=== PATIENT | male | born 1935 | race Caucasian/White ===

== ENCOUNTER 2021-01-13 19:42 | Observation (INO) | payer MEDICARE, SELFPAY ==
--- NOTE | 2021-01-13 19:50 | ECG_ITS ---
[facility] Test Date: 2021-01-13 Pat Name: Evi Banuelos Department: Room: Gender: Male Development Officer: : 1935 Requested By: Elvia Troy Order Number: [id number] Jaskaran MD: Salina Pina M.D. Measurements Intervals Cyclone Rate: 103 P: 57 RI: 210 QRS: -25 QRSD: 94 T: 55 QT: 332 QTc: 436 Interpretive Statements SINUS TACHYCARDIA WITH FIRST DEGREE AV BLOCK WITH OCCASIONAL VENTRICULAR PREMATURE COMPLEXES BORDERLINE LEFT AXIS DEVIATION [QRS AXIS < -20] Compared to ECG 05/18/2019 20:31:00 Ventricular premature complex(es) now present Sinus rhythm no longer present T-wave abnormality no longer present Electronically Signed On 01-13-2021 21:00:32 CDT by Salina Pina M.D. [id number]
--- NOTE | 2021-01-13 19:50 | CTR_ITS ---
PROCEDURE INFORMATION: Exam: CT Head Without Contrast Exam date and time: 01/13/2021 8:01 PM Age: 85 years old Clinical indication: Syncope and collapse; Additional info: Syncope, fall, TECHNIQUE: Imaging protocol: Computed tomography of the head without contrast. Radiation optimization: All CT scans at this facility use at least one of these dose optimization techniques: automated exposure control; mA and/or kV adjustment per patient size (includes targeted exams where dose is matched to clinical indication); or iterative reconstruction. COMPARISON: CT head wo con* [id number] 05/18/2019 9:14 PM RADIATION DOSE METRICS: Total DLP (mGy-cm): 981.79 FINDINGS: Brain: There is moderate cortical atrophy. Low-density changes in the white matter are consistent with nonspecific small vessel chronic ischemic change. There is no intracranial mass, hemorrhage or edema. Cerebral ventricles: No ventriculomegaly. Bones/joints: Unremarkable. No acute fracture. Paranasal sinuses: There is complete opacification of the right maxillary sinus with high density material. Findings could represent some chronic fungal sinus disease. Mastoid air cells: Visualized mastoid air cells are well aerated. Soft tissues: Unremarkable. CT/CT head wo con* [id number] IMPRESSION: No acute intracranial finding. No significant change from 05/18/2019. Radiation Dose CTDIVOL = (mGy): DLP = 981.79 (mGy-cm)
--- NOTE | 2021-01-13 19:50 | XR_ITS ---
WS: [id number] Portable AP upright chest, 01/13/2021 Clinical Data: cp Comparison: Portable chest, 05/18/2019 Findings: No nodules, masses or effusions are seen. The heart is normal. The pulmonary vascularity is not increased. No pneumonia or pneumothorax is seen. The aortic arch and descending aorta are tortuo us. There is atelectasis and/or scarring over the lateral aspect of the left diaphragm. Monitor leads are on the chest wall. XR/XR chest 1V portable [id number] Impression: Atherosclerosis.
[2021-01-13 19:54] VITALS: BP 150/90; PULSE 98; RESP 16; TEMP 37.1; O2SAT 91; BMI 33.8
--- NOTE | 2021-01-13 19:56 | W.ED.SYNCOPE ---
HPI - Syncope General: Chief Complaint: Syncope Stated Complaint: syncope Time Seen by Provider: 01/13/21 19:44 Source: patient and EMS Mode of arrival: EMS Limitations: no limitations History of Present Illness: HPI narrative: 85-year-old male who states he was getting up from the bathroom and walking out and had a syncopal event. EMS states when they arrived he was still out of it. Patient had lost consciousness for roughly 20 to 30 minutes. He states he has had this happen once before and he thought it may have been his blood pressure medicines. His blood pressure here is been normal edema states initial blood pressure was normal as well. He states he does not remember anything after it. He states he did have some confusion when he first woke up but now he is awake and alert able answer all my questions appropriately. He denies any chest pain or headache. Associated symptoms: Deny abdominal pain, fever(s), headache(s) or nausea Review of Systems Const: Denies: fever(s), chills, body aches or change in appetite Eyes: Denies: blurry vision or eye discomfort ENMT: Denies: throat pain or dental pain Card: Reports: syncope Resp: Denies: dyspnea GI: Denies: abdominal pain, nausea, vomiting or diarrhea : Denies: dysuria Musc: Denies: neck pain or back pain Skin/Breast: Denies: rash Neuro: Denies: headache(s) Psych: Denies: depression Manoj/Lymph: Denies: easy bruising All/Imm: Denies: urticaria PFSH ED PFSH: Medical History (Updated 01/13/21 @ 22:27 by Jory Stearns MD) Abnormal colonoscopy Polyps, diverticulosis Atrial fibrillation Not a kind of chronic anticoagulation BPH (benign prostatic hyperplasia) GERD (gastroesophageal reflux disease) HTN (hypertension) Hyperlipidemia PVC (premature ventricular contraction) Seizures Type 2 diabetes mellitus Surgical History (Updated 01/13/21 @ 22:27 by Jory Stearns MD) History of esophagogastroduodenoscopy Gastritis, gastric polyp 2015 Social History Smoking and tobacco status: former smoker Alcohol intake: never Physical Exam Const: COMMON NORMALS: no acute distress, patient oriented x3 and healthy appearing HENMT: COMMON NORMALS: normocephalic and atraumatic HEAD & SCALP: normocephalic and atraumatic Eye: COMMON NORMALS: Equal, round and reactive pupils present and EOMs intact bilaterally PUPIL: Yes Equal, round and reactive pupils present Neck/C-Spine: COMMON NORMALS: full ROM and supple Chest: COMMONS NORMALS: normal inspection of the chest and normal palpation of entire chest wall Resp: COMMON NORMALS: normal respiratory effort, No retractions, No use of accessory muscles and clear to auscultation bilaterally AUSCULTATION: clear to auscultation bilaterally Cardio: COMMON NORMALS: regular rate, regular rhythm and No murmurs present (Cardio) RATE: regular rate RHYTHM: regular rhythm GI: COMMON NORMALS: Normal to inspection, nondistended, normoactive bowel sounds present, Soft to palpation, non-tender and no masses PALPATION: Yes Soft to palpation Extremity: COMMON NORMALS: normal to inspection and full ROM Neuro: COMMON NORMALS: patient oriented x3, moves all extremities and no focal motor deficits Psych: COMMON NORMALS: mental status grossly normal, Normal thought process present and cooperative THOUGHT PROCESS: Normal thought process present Skin: COMMON NORMALS: no rashes or lesions noted and no wounds GENERAL SKIN EXAM: no rashes or lesions noted Course Vital Signs: Vital signs: Vital Signs Temperature 98.7 F 01/13/21 19:54 Pulse Rate 111 H 01/13/21 22:35 Respiratory Rate 16 01/13/21 22:35 Blood Pressure 136/88 01/13/21 22:35 Pulse Oximetry 93 01/13/21 22:35 MDM - Syncope MDM Narrative: Medical decision making narrative: Patient presents here with a syncopal event. Patient has been well-appearing here and has had no headache or chest pain. Initial troponin and EKG are normal. Patient's CT head here is normal as well. I spoke to physician and will admit due to the prolonged event of the syncope. Lab Data: Labs: Lab Results 01/13/21 01/13/21 01/13/21 Range/Units 20:12 20:12 20:12 WBC 8.8 (4.0-10.0) 10^3/ uL RBC 5.39 H (4.1-5.3) 10^6/u L Hgb 16.1 (11.7-16.6) g/dL Hct 48.4 (42.0-52.0) % MCV 89.8 (80-94) fL MCH 29.9 (28.0-34.0) pg MCHC 33.3 (30.0-36.0) g/dL RDW 13.0 (12.1-15.1) % Plt Count 204 (130-400) 10^3/c mm MPV 11.1 H (7.4-10.4) fL Neut % (Auto) 57.9 % Lymph % (Auto) 34.1 % [place] % (Auto) 6.1 % Eos % (Auto) 1.4 % Baso % (Auto) 0.3 % Neut # (Auto) 5.11 (1.8-7.7) 10^3/u L Lymph # (Auto) 3.0 (0.8-4.8) 10^3/u L [place] # (Auto) 0.5 (0.2-0.9) 10^3/u L Eos # (Auto) 0.1 (0.0-0.8) 10^3/u L Baso # (Auto) 0.0 (0.0-0.1) 10^3/u L Nucleated RBC % (a uto) 0 % Nucleated RBCs # 0.0 /100WBC PT 14.10 (12.1-14.9) SECO NDS INR 1.05 (0.8-1.2) Sodium 135 L (136-145) mmol/L Potassium 3.7 (3.5-5.1) mmol/L Chloride 96 L (98-107) mmol/L Carbon Dioxide 22 (22-29) mmol/L Anion Gap 20.7 H (5-19) BUN 16 (8-23) mg/dL Creatinine 0.9 (0.7-1.2) mg/dL GFR Calculation Not Reportable Glucose 123 H (65-115) mg/dL Calculated Osmolal ity 283 L (285-295) mOsm/k g Calcium 10.3 (8.5-10.5) mg/dL Total Bilirubin 0.5 (0.15-1.2) mg/dL AST 46 H (0-40) U/L ALT 26 (0-41) U/L Alkaline Phosphata se 93 (40-130) IU/L Troponin T Baselin e (0-15) ng/L Total Protein 7.2 (6.6-8.7) g/dL Albumin 4.8 (3.5-5.2) g/dL Globulin 2.4 (1.3-4.6) g/dL 01/13/21 Range/Units 20:12 WBC (4.0-10.0) 10^3/ uL RBC (4.1-5.3) 10^6/u L Hgb (11.7-16.6) g/dL Hct (42.0-52.0) % MCV (80-94) fL MCH (28.0-34.0) pg MCHC (30.0-36.0) g/dL RDW (12.1-15.1) % Plt Count (130-400) 10^3/c mm MPV (7.4-10.4) fL Neut % (Auto) % Lymph % (Auto) % [place] % (Auto) % Eos % (Auto) % Baso % (Auto) % Neut # (Auto) (1.8-7.7) 10^3/u L Lymph # (Auto) (0.8-4.8) 10^3/u L [place] # (Auto) (0.2-0.9) 10^3/u L Eos # (Auto) (0.0-0.8) 10^3/u L Baso # (Auto) (0.0-0.1) 10^3/u L Nucleated RBC % (a uto) % Nucleated RBCs # /100WBC PT (12.1-14.9) SECO NDS INR (0.8-1.2) Sodium (136-145) mmol/L Potassium (3.5-5.1) mmol/L Chloride (98-107) mmol/L Carbon Dioxide (22-29) mmol/L Anion Gap (5-19) BUN (8-23) mg/dL Creatinine (0.7-1.2) mg/dL GFR Calculation Glucose (65-115) mg/dL Calculated Osmolal ity (285-295) mOsm/k g Calcium (8.5-10.5) mg/dL Total Bilirubin (0.15-1.2) mg/dL AST (0-40) U/L ALT (0-41) U/L Alkaline Phosphata se (40-130) IU/L Troponin T Baselin e 24 H (0-15) ng/L Total Protein (6.6-8.7) g/dL Albumin (3.5-5.2) g/dL Globulin (1.3-4.6) g/dL Imaging Data^: CT Head: Radiologist's impression: [address] [place] [address] CT Scan Report Signed Patient: Evi Banuelos Unit #: [id number] : 1935 Age/Sex: 85 / M ADM Date: 01/13/21 Loc: ER Room/Bed: Attending Dr: Ordering Provider/Ordering MD: Elvia Troy MD Date of Service: 01/13/21 Procedure(s): CT head wo con* [id number] Accession Number(s): [id number] Report Number: [id number] PROCEDURE INFORMATION: Exam: CT Head Without Contrast Exam date and time: 01/13/2021 8:01 PM Age: 85 years old Clinical indication: Syncope and collapse; Additional info: Syncope, fall, TECHNIQUE: Imaging protocol: Computed tomography of the head without contrast. Radiation optimization: All CT scans at this facility use at least one of these dose optimization techniques: automated exposure control; mA and/or kV adjustment per patient size (includes targeted exams where dose is matched to clinical indication); or iterative reconstruction. COMPARISON: CT head wo con* [id number] 05/18/2019 9:14 PM RADIATION DOSE METRICS: Total DLP (mGy-cm): 981.79 FINDINGS: Brain: There is moderate cortical atrophy. Low-density changes in the white matter are consistent with nonspecific small vessel chronic ischemic change. There is no intracranial mass, hemorrhage or edema. Cerebral ventricles: No ventriculomegaly. Bones/joints: Unremarkable. No acute fracture. Paranasal sinuses: There is complete opacification of the right maxillary sinus with high density material. Findings could represent some chronic fungal sinus disease. Mastoid air cells: Visualized mastoid air cells are well aerated. Soft tissues: Unremarkable. CT/CT head wo con* [id number] IMPRESSION: No acute intracranial finding. No significant change from 05/18/2019. Radiation Dose CTDIVOL = (mGy): DLP = 981.79 (mGy-cm) EKG Data^: EKG 1: Attestation: I personally reviewed and interpreted this EKG as follows: EKG interpretation date: 01/13/21 EKG interpretation time: 22:14 Interpretation: nsr hr [address] or t wave abnormalities qrs 98 qtc 384 Discharge Plan Discharge Admit Provider: Jory Stearns Coding Level of Care Code ED Equipment Validation Engineer for Chg Fwd Exam Comprehensive
[2021-01-13 20:11] VITALS: BP 164/91; PULSE 104; RESP 16; O2SAT 91
--- NOTE | 2021-01-13 20:12 | XR_ITS ---
WS: [id number] LEFT ELBOW: 3 VIEW(S) TECHNIQUE: AP, oblique and lateral. HISTORY: injury COMPARISON: None available. Small avulsion at the olecranon is age indeterminate. No joint effusion. No joint effusion. There is a large soft tissue hematoma centered over the olecranon extending over a length of 10 cm x 2.3 cm. XR/XR elbow LT min 3V* [id number] IMPRESSION: 1. Age-indeterminate tiny avulsion from the olecranon. 2. Large soft tissue hematoma centered over the elbow.
[2021-01-13 20:19] VITALS: RESP 16; O2SAT 91
[2021-01-13] MEDS: ondansetron 2 mg/ML SDV 2 mL 4 MG IVP (20:19)
[2021-01-13] MEDS: morphine 4 mg/mL SDV 1 mL IVP (20:19)
--- NOTE | 2021-01-13 20:21 | PC.NURSE ---
patient to ct
[2021-01-13 20:24] LABS: Basophils % 0.3 %; Eosinophils # 0.1 10^3/uL (0.0-0.8); Eosinophils % 1.4 %; Hematocrit 48.4 % (42.0-52.0); Hemoglobin 16.1 g/dL (11.7-16.6); Lymphocytes % 34.1 %; Mean Corpuscular HGB Conc 33.3 g/dL (30.0-36.0); Mean Corpuscular Hemoglobin 29.9 pg (28.0-34.0); Mean Corpuscular Volume 89.8 fL (80-94); Mean Platelet Volume 11.1 fL (7.4-10.4); Monocytes # 0.5 10^3/uL (0.2-0.9); Monocytes % 6.1 %; Neutrophils # 5.11 10^3/uL (1.8-7.7); Neutrophils % 57.9 %; Nucleated Red Blood Cells % 0 %; Platelet Count 204 10^3/cmm (130-400); Red Blood Count 5.39 10^6/uL (4.1-5.3); White Blood Count 8.8 10^3/uL (4.0-10.0)
[2021-01-13 20:47] LABS: Troponin(5th) Baseline 24 ng/L (0-15)
[2021-01-13 20:48] LABS: Alanine Aminotransferase 26 U/L (0-41); Albumin Level 4.8 g/dL (3.5-5.2); Alkaline Phosphatase 93 IU/L (40-130); Anion Gap 20.7 (5-19); Aspartate Amino Transferase 46 U/L (0-40); Blood Urea Nitrogen 16 mg/dL (8-23); Calcium 10.3 mg/dL (8.5-10.5); Carbon Dioxide 22 mmol/L (22-29); Chloride 96 mmol/L (98-107); Globulin 2.4 g/dL (1.3-4.6); Glucose 123 mg/dL (65-115); Osmolality Calculated 283 mOsm/kg (285-295); Potassium 3.7 mmol/L (3.5-5.1); Sodium 135 mmol/L (136-145); Total Bilirubin 0.5 mg/dL (0.15-1.2); Total Protein 7.2 g/dL (6.6-8.7)
[2021-01-13 21:50] LABS: INR 1.05 (0.8-1.2)
--- NOTE | 2021-01-13 21:50 | ECG_ITS ---
[facility] Test Date: 2021-01-13 Pat Name: Evi Banuelos Department: Room: Gender: Male Travel Pt: : 1935 Requested By: Elvia Troy Order Number: [id number] Jaskaran MD: Salina Pina M.D. Measurements Intervals [place] Rate: 98 P: 24 HI: 200 QRS: -35 QRSD: 98 T: 43 QT: 328 QTc: 420 Interpretive Statements SINUS RHYTHM LEFT AXIS DEVIATION [QRS AXIS < -30] Compared to ECG 01/13/2021 20:01:06 Sinus tachycardia no longer present First degree AV block no longer present Electronically Signed On 01-13-2021 22:33:52 CDT by Salina Pina M.D. [id number]
--- NOTE | 2021-01-13 22:24 | PM.HP ---
Providers/Chief Complaint Primary Care Provider: Judi Pak APN Chief Complaint: syncope History of Present Illness Evi Banuelos is a 85 year old male who presented today after an episode of fall in his bathroom. Patient is stating that he is very active for his age, he has had 2 episode of seizure in the past, his seizure episode mostly would present as confusion he never sustained any myoclonic activity or syncopal events. Today around evening he felt something funny which he is describing as I could not think right , he sat in his chair and then decided to go to the bathroom. When checked on him after 20 minutes he was found on the ground hence EMS was called. Patient is stating that he has no memory of going to the bathroom at all he was very confused after he woke up and was a bit aggressive with the EMS staff. He is denying chest pain, palpitations, recent fever, headache, vision changes, shortness of breath. He does not take any antiepileptics. He is endorsing tongue bite and injury to his left elbow Diagnostics in the ER revealed normal CBC, BMP, mild hypokalemia, EKG unremarkable, CT head unremarkable, based on his clinical presentation tongue bite most likely had a seizure I am giving him 1 g of Keppra, elbow x-ray official read is pending, also requested prolactin level along D-dimer at the time of my evaluation he was awake alert very pleasant and cooperative Review of Systems Const: Denies: fever(s) or chills Eyes: Denies: change in vision ENMT: Denies: throat pain Card: Denies: chest pain Resp: Denies: dyspnea GI: Denies: abdominal pain : Denies: flank pain Musc: Denies: neck pain Skin/Breast: Reports: skin tenderness, skin swelling, new lesions and striae Neuro: Reports: seizure-like activity; Denies: weakness in extremities Psych: Denies: anxiety Endo: Denies: polyuria Manoj/Lymph: Denies: easy bruising All/Imm: Denies: urticaria Medications/Allergies Home Medications Medication Instructions Recorded Confirmed Last Taken Type hydrochlorothiazide 12.5 mg tablet 12.5 mg PO QAM 11/25/19 01/13/21 01/13/21 11:38 History loratadine 10 mg capsule 10 mg PO QAM 11/25/19 01/13/21 01/13/21 History lovastatin 20 mg tablet 20 mg PO DAILY@18 11/25/19 01/13/21 01/12/21 History potassium gluconate 595 mg (99 mg) 595 mg PO QAM 11/25/19 01/13/21 01/13/21 History tablet tamsulosin 0.4 mg capsule 0.4 mg PO DAILY@18 11/25/19 01/13/21 01/12/21 History omeprazole 20 mg capsule,delayed 20 mg PO DAILY PRN 11/16/20 01/13/21 Unknown History release telmisartan 80 mg tablet 80 mg PO BID@05,18 tab 11/16/20 01/13/21 01/13/21 11:38 History A-C-E-zinc ox-selen AA-copper 1 tab PO QAM 01/13/21 01/13/21 01/13/21 History [Vision Formula(R-B-K-Zn-Se-Cu)] Vitamin C 1 tab PO QAM 01/13/21 01/13/21 01/13/21 History acetaminophen [Tylenol Extra 1,000 mg PO PRN 01/13/21 01/13/21 Unknown History Strength] calcium carbonate [Calcium 500] 500 mg PO DAILY 01/13/21 01/13/21 01/13/21 History cholecalciferol (vitamin D3) 25 mcg PO DAILY 01/13/21 01/13/21 01/13/21 History [Vitamin D3] diltiazem HCl 180 mg PO QAM 01/13/21 01/13/21 01/13/21 11:38 History fluticasone propionate [Flonase] 2 spray INTRANASAL DAILY 01/13/21 01/13/21 01/13/21 History magnesium 250 mg PO QAM 01/13/21 01/13/21 01/13/21 History Allergies Allergy/AdvReac Type Severity Reaction Status Date / Time erythromycin base Allergy Unknown Verified 01/13/21 21:40 Beta-Adrenergic Agents AdvReac ADR-Depress Verified 01/13/21 21:40 ion Sulfa (Sulfonamide AdvReac ADR-Itching Verified 01/13/21 21:40 Antibiotics) PFSH Acute PFSH: Medical History Abnormal colonoscopy Polyps, diverticulosis Atrial fibrillation Not a kind of chronic anticoagulation BPH (benign prostatic hyperplasia) GERD (gastroesophageal reflux disease) HTN (hypertension) Hyperlipidemia PVC (premature ventricular contraction) Seizures Type 2 diabetes mellitus Surgical History (Updated 01/14/21 @ 00:16 by Jory Stearns MD) H/O wrist surgery History of appendectomy History of esophagogastroduodenoscopy Gastritis, gastric polyp 2016 History of repair of hiatal hernia History of thyroglossal duct cyst removal S/P cholecystectomy Family History Denies family history of Diabetes Dementia Hyperlipidemia Chronic kidney disease (CKD) Family history of premature coronary artery disease Cancer Stroke Social History Smoking and tobacco status: former smoker Alcohol intake: never Substance/Drug Use: never Household members: spouse Housing: House Vitals/I&O/Wt Last Vital Signs Temp 98.7 F 01/13/21 19:54 Pulse 104 H 01/13/21 20:11 Resp 16 01/13/21 20:19 BP 164/91 01/13/21 20:11 Pulse Ox 91 01/13/21 20:19 Weight last 48 hrs Weight 97.976 kg Physical Exam Narrative: EXAM NARRATIVE: Very pleasant male was sitting on table in his bed, he was on 2 L nasal cannula saturating well No active chest pain or shortness of breath He was awake alert oriented x3 GCS 15 Well-groomed S1, S2 no murmur appreciated no signs of heart failure Lower extremity no edema gangrene or ulcer Abdomen soft, central obesity, hiatal hernia, nontender no signs of peritonitis EOMI, PERRLA No neurological deficits Left elbow swelling without vascular compromise Tongue petechiae and purpura without active bleeding Appropriate mood and affect with good insight Data : 01/13/21 20:12 01/13/21 20:12 A&P Assessment and plan (1) Syncope: Status: Acute (2) Breakthrough seizure: Status: Acute Additional A&P Information Syncopal event Tongue bite, confusion after syncopal event consistent with seizure-like activity will request prolactin level patient is endorsing to previous episode of seizures, he does not take any antiepileptics, potassium 3.7 we will check magnesium, calcium is normal CT head unremarkable he is afebrile blood glucose is normal, Would load him with Keppra and start 500 mg twice a day, he will need outpatient neurology follow-up Patient should not drive until cleared by neurologist We will follow up with prolactin and D-dimer level EKG showing PVCs, no ischemic or infarctive changes, low risk for PE we will follow up with D-dimer History of hypertension: Continue home dose of antihypertensives telmisartan hydrochlorothiazide Obstructive sleep apnea, he uses setting of 16 cm water at home will use auto CPAP for now Goals of care discussed with the patient: Full code I will keep him on full liquid diet and advance gradually, and choosing this diet in case he starts having breakthrough seizures overnight PVCs: He has seen Dr. Chaney for his PVCs, I would continue AV bo blocking agents for now Holter monitor with HR 61-120, avg-88 bpm. 13.19% PVC burden. The longest run was 4 beat long. Lexiscan stress test on September, with medium-size paradoxical perfusion abnormality of inferior and inferolateral lateral light suggestive of attenuation artifact. Normal left ventricular systolic function with no regional wall motion abnormalities. Ejection fraction 59%. TTE (05/19/19): Normal LV size and function. LVEF=55%. Grade 1 DD. Mildly increased LA size. Carotid duplex (05/19/19): 16-40% stenosis bilaterally. Attestations Medical Necessity Statement*: Anticipating discharge in less than 48 hours will need overnight monitoring because of history of syncopal event secondary to a seizure currently loading him with Keppra will need overnight monitoring Time Spent in Patient Care: (>than 50% of time spent in counselling and/or direct pt care on unit). 40mins Coding Level of Care Code Acute Maintenance Shop Manager for Chg Fwd Diagnoses Syncope R55 Breakthrough seizure G40.919
[2021-01-13 22:35] VITALS: BP 136/88; PULSE 111; RESP 16; O2SAT 93
[2021-01-13 22:49] LABS: Troponin 5 2HR 30.05 ng/L (0-15); Troponin 5 2HR Delta 6.05 ABS# (0-10)
[2021-01-13 22:53] VITALS: BP 145/103; PULSE 108; RESP 17; O2SAT 92
[2021-01-14] VITALS (8 sets, daily range): BP systolic 113–146; BP diastolic 70–98; PULSE 67–107; RESP 14–18; TEMP 36.5–36.9; O2SAT 90–95
[2021-01-14] MEDS: enoxaparin 40 mg/0.4 mL Syringe SUBCUT (00:40)
[2021-01-14 01:09] LABS: Prolactin 8.09 ng/mL (4.0-15.2)
[2021-01-14 01:21] LABS: D Dimer 0.56 ug/mIFEU (0-0.59)
[2021-01-14 03:01] LABS: Troponin 5 6HR 32.66 ng/L (0-15); Troponin 5 6HR Delta 8.66 ng/L (0-12)
[2021-01-14 03:10] LABS: Anion Gap 10.3 (5-19); Blood Urea Nitrogen 13 mg/dL (8-23); Calcium 9.5 mg/dL (8.5-10.5); Carbon Dioxide 27 mmol/L (22-29); Chloride 98 mmol/L (98-107); Glucose 111 mg/dL (65-115); Magnesium 2.1 mg/dL (1.7-2.3); Osmolality Calculated 275 mOsm/kg (285-295); Potassium 3.3 mmol/L (3.5-5.1); Sodium 132 mmol/L (136-145); Thyroid Stimulating Hormone 0.59 uIU/mL (0.27-4.20)
[2021-01-14] MEDS: losartan 50 mg Tablet 100 MG PO (05:45)
[2021-01-14] MEDS: dilTIAZem ER (24HR) 180 mg Capsule PO (05:45)
[2021-01-14] MEDS: hydroCHLOROthiazide 25 mg Tablet 12.5 MG PO (05:45)
[2021-01-14] MEDS: levETIRAcetam 500 mg Tablet PO (08:23)
[2021-01-14] MEDS: potassium chloride ER 20 mEq Tablet PO (08:23)
--- NOTE | 2021-01-14 13:20 | PC.CHAP ---
Pastoral Care Encounter/Spiritual Assessment Type of Contact [] Declined distillery worker visit [] Patient/Family/Request visit [] Outpatient visit [] Follow-up visit [] Physician referral [] Code/Alert [] Routine visit [] Staff referral [] Actively dying [xx] Patient sleeping [] Family support [] [] Out of room [] Palliative care [] [] Receiving care in room [] Pre-surgical visit [] Trauma [] Long length of stay [] ICU visit [xx] Other: patient on oxygen mask/intubated Relational/Emotional Strength [] Patient feels connected with others/family/visitors/staff [] Distress [] Loneliness/isolation [] Abandonment Spirituality of Patient [] Person of Precious [] Attends Rastafari of their Precious [] Believes in Prayer [] Reads Bible or Sikhism materials [] There are Spiritual issues to be addressed Resident Assistant Interventions [] Prayer [] Active listening [] Non-anxious presence [] Spiritual/emotional support [] Crisis/trauma care [] Spiritual counseling [] Bereavement support [] Provided bereavement packet [] Provided Bible/devotional materials [] Provided toy/stuffed animal, coloring book to patient or family member [] Provided Communion [] Anointing/[place] [] Salvation [] Completed spiritual assessment [] Other: Impact on Illness or Injury [] Angry [] Fearful [] Anxious [] Often cries [] Exhaustion [] Unable to work [] Unable to attend yazdanism [] Unable to walk/stand [] Unable to read [] Unable to drive [] Unable to eat/drink [] Unable to sleep [] Unable to be with family [xx] Patient intubated [] Other: Summary Patient unable to communicate. Follow up needed. Time spent with patient
--- NOTE | 2021-01-14 14:28 | PM.DCS ---
Discharge Providers Date of Admission: 01/13/21 21:18 Date of Discharge: January 14, 2021 Attending Provider at Admission: Jory Stearns MD Attending Provider at Discharge: Mayra Ferguson MD Primary Care Provider: Judi Pak APN Diagnoses at Discharge Discharge Diagnosis (1) Syncope: Status: Acute (2) Breakthrough seizure: Status: Acute Reason for Visit Reason for Visit: syncope Hospital Course Hospital Course Evi Banuelos is a 85 year old male who presented today after an episode of fall in his bathroom. Circumstances of fall not entirey clear, patient felt abnormal sensation in his head, went to the bathroom and found him on the floor a few minutes later. He was confused, agitated after the episode, had bit his tongue, concern for seizure with post ictal state vs syncope. He was started on Keppra overnight, continued on Keppra 500BID at discharge. Diagnostics in the ER revealed normal CBC, BMP, mild hypokalemia, EKG unremarkable, CT head unremarkable,normal prolactin, troponin series and EKGs unremarkable. Ekg with sinus rhythm. Follows with cardiology, holter monitor with HR 61-120, avg-88 bpm. 13.19% PVC burden. The longest run was 4 beat long. Echocardiogram with Ejection fraction 59%. TTE (05/19/19): Normal LV size and function. LVEF=55%. Grade 1 DD. Mildly increased LA size. At home SBP range has been between 117-140, no hypotensive episodes as far as patient is aware. No further episodes during course of admission. Being discharged today in stable condition with recommendation to follow with neurology for further w/up for possible seizures, which would be an odd presentation at his age. No other cognitive changes. Physical Exam Narrative: EXAM NARRATIVE: GEN: Awake, alert and oriented, no acute distress CVS: S1S2 N RS: CTA B/L Abd: Soft, nt/nd , bs+ SOLUTIONS CONSULTANT: no focal neuro deficits EXT: brusing over left elbow with swelling, soft tissue trauma from fall. Discharge Data Data Completed and Pending: Completed Studies During Hospitalization Category Date Time Status CT head wo con* 7 1070 Urgent Cat Scan 01/13/21 19:50 Completed XR chest 1V miguelito ble [id number] Stat Exams 01/13/21 19:50 Completed XR elbow LT min 3 V* [id number] Stat Exams 01/13/21 20:12 Completed Labs from last 24 hours 01/14/21 01/14/21 01/13/21 02:17 02:17 22:10 WBC RBC Hgb Hct MCV MCH MCHC RDW Plt Count MPV Neut % (Auto) Lymph % (Auto) [place] % (Auto) Eos % (Auto) Baso % (Auto) Neut # (Auto) Lymph # (Auto) [place] # (Auto) Eos # (Auto) Baso # (Auto) Nucleated RBC % (a uto) Nucleated RBCs # PT INR D-Dimer Sodium 132 L Potassium 3.3 L Chloride 98 Carbon Dioxide 27 Anion Gap 10.3 BUN 13 Creatinine 0.7 GFR Calculation Not Reportable Glucose 111 Calculated Osmolal ity 275 L Calcium 9.5 Magnesium 2.1 Total Bilirubin AST ALT Alkaline Phosphata se Troponin T Baselin e Troponin T 120 Min [place] Delta Troponin T Troponin T Hi Sens 6Hr 32.66 H Troponin T Hi Sens 6Hr Delta 8.66 Total Protein Albumin Globulin TSH 0.59 Prolactin 8.09 01/13/21 01/13/21 01/13/21 22:10 20:12 20:12 WBC RBC Hgb Hct MCV MCH MCHC RDW Plt Count MPV Neut % (Auto) Lymph % (Auto) [place] % (Auto) Eos % (Auto) Baso % (Auto) Neut # (Auto) Lymph # (Auto) [place] # (Auto) Eos # (Auto) Baso # (Auto) Nucleated RBC % (a uto) Nucleated RBCs # PT INR D-Dimer 0.56 Sodium Potassium Chloride Carbon Dioxide Anion Gap BUN Creatinine GFR Calculation Glucose Calculated Osmolal ity Calcium Magnesium Total Bilirubin AST ALT Alkaline Phosphata se Troponin T Baselin e 24 H Troponin T 120 Min [place] 30.05 H Delta Troponin T 6.05 Troponin T Hi Sens 6Hr Troponin T Hi Sens 6Hr Delta Total Protein Albumin Globulin TSH Prolactin 01/13/21 01/13/21 01/13/21 20:12 20:12 20:12 WBC 8.8 RBC 5.39 H Hgb 16.1 Hct 48.4 MCV 89.8 MCH 29.9 MCHC 33.3 RDW 13.0 Plt Count 204 MPV 11.1 H Neut % (Auto) 57.9 Lymph % (Auto) 34.1 [place] % (Auto) 6.1 Eos % (Auto) 1.4 Baso % (Auto) 0.3 Neut # (Auto) 5.11 Lymph # (Auto) 3.0 [place] # (Auto) 0.5 Eos # (Auto) 0.1 Baso # (Auto) 0.0 Nucleated RBC % (a uto) 0 Nucleated RBCs # 0.0 PT 14.10 INR 1.05 D-Dimer Sodium 135 L Potassium 3.7 Chloride 96 L Carbon Dioxide 22 Anion Gap 20.7 H BUN 16 Creatinine 0.9 GFR Calculation Not Reportable Glucose 123 H Calculated Osmolal ity 283 L Calcium 10.3 Magnesium Total Bilirubin 0.5 AST 46 H ALT 26 Alkaline Phosphata se 93 Troponin T Baselin e Troponin T 120 Min [place] Delta Troponin T Troponin T Hi Sens 6Hr Troponin T Hi Sens 6Hr Delta Total Protein 7.2 Albumin 4.8 Globulin 2.4 TSH Prolactin Vitals: Last Vital Signs Temp 98.2 F 01/14/21 12:05 Pulse 67 01/14/21 12:05 Resp 18 01/14/21 12:05 BP 113/70 01/14/21 12:05 Pulse Ox 91 01/14/21 12:05 Discharge Plan Discharge Patient Disposition: Home Condition: Stable Prescriptions: New levetiracetam 500 mg Tablet 500 mg PO BID 30 Days Qty: 60 RF: 0 Continued hydrochlorothiazide 12.5 mg tablet 12.5 mg PO QAM RF: 0 loratadine 10 mg capsule 10 mg PO QAM RF: 0 lovastatin 20 mg tablet 20 mg PO DAILY@18 RF: 0 potassium gluconate 595 mg (99 mg) tablet 595 mg PO QAM RF: 0 tamsulosin 0.4 mg capsule 0.4 mg PO DAILY@18 RF: 0 omeprazole 20 mg capsule,delayed release(DR/EC) 20 mg PO DAILY PRN (Reason: Acid Reflux) RF: 0 telmisartan 80 mg tablet 80 mg PO BID@ RF: 0 Tylenol Extra Strength 500 mg Tablet 1,000 mg PO PRN RF: 0 Calcium 500 500 mg calcium (1,250 mg) Tablet,Chewable 500 mg PO DAILY RF: 0 magnesium 250 mg Tablet 250 mg PO QAM RF: 0 Flonase 50 mcg/actuation [place],Suspension 2 spray INTRANASAL DAILY RF: 0 Vitamin D3 25 mcg (1,000 unit) Tablet,Chewable 25 mcg PO DAILY RF: 0 Vision Formula(K-X-Q-Zn-Se-Cu) 1,000 unit-60 mg-30 unit Tablet 1 tab PO QAM RF: 0 Vitamin C 1 tab PO QAM RF: 0 diltiazem HCl 180 mg capsule,extended release 24hr 180 mg PO QAM RF: 0 Discharge Orders: Discharge Order (Routine); Ordered 01/14/21 Ordered By: Mayra Ferguson Referrals: Judi Pak APN [Primary Care Provider] - Susan Yates MD [Physician] - 1 month Discharge Diet: Usual diet Discharge Activity: Resume usual activity Activity Restrictions/Additional Instructions: Avoid driving until seen by neurologist Discharge Attestations Time Spent in Discharge Care*: other Quality Metrics Clinical Quality Measures During this hospital stay, did patient experience: None Coding Level of Care Code Acute Chg FW DC note Diagnoses Syncope R55 Breakthrough seizure G40.919
--- NOTE | 2021-01-14 15:07 | PC.NURSE ---
left elbow wrapped with jessica wrap to decrease elbow swelling per Dr. Ferguson.
--- NOTE | 2021-01-14 15:30 | PC.NURSE ---
Discharge instructions reviewed with patient, denies further questions or concerns.
--- NOTE | 2021-01-17 13:23 | PC.SOCIAL ---
Patient called and indicates he would prefer the neurology referral be sent to [facility] in hopes he can be seen sooner. Called [facility] and verified fax. Sent referral per patient request. Patient will await appt and see who he can see soonest. We discussed he may need his PCP to order the antiepileptic medication if an appt is not in place prior to running out of seizure medication ordered at [facility]. He verbalized understanding. Confirmation received that fax was sent successfully.
== END 2021-01-14 15:51 | disposition home or self-care (01) ==
LOC: ER 20:14 → MEDSURG 22:39
PROVIDERS: Admitting Provider Internal Medicine; Emergency Provider Emergency Medicine; PCP Nurse Practitioner; Visit Provider Student in an Organized Health Care Education/Training Program
DX: R55 Syncope and collapse (principal); G40.919 Epilepsy, unspecified, intractable, without status epilepticus; Z91.81 History of falling; N40.0 Benign prostatic hyperplasia without lower urinary tract symptoms; K21.9 Gastro-esophageal reflux disease without esophagitis; I10 Essential (primary) hypertension; E78.5 Hyperlipidemia, unspecified; Z87.891 Personal history of nicotine dependence
CPT/HCPCS: 36415; 70450; 71045; 73080; 80048; 80053; 83735; 84146; 84443; 84484; 85025; 85378; 85610; 93005; 94660; 96365; 96372; 96375; 99285; G0378; J1650; J1953; J2270; J2405

== ENCOUNTER → 2021-02-02 12:31 | Outpatient (BNVA) | payer MEDICARE, SELFPAY | PROVIDERS: PCP Nurse Practitioner; Referring Provider Family Medicine; Visit Provider Specialist | DX: R55 Syncope and collapse (principal); Z87.891 Personal history of nicotine dependence | CPT/HCPCS: 95816 ==

== ENCOUNTER 2021-02-03 14:10 | Outpatient (CLI) | payer MEDICARE, SELFPAY ==
--- NOTE | 2021-02-03 | CT_ITS ---
WS: [id number] CT ABDOMEN PELVIS TECHNIQUE: Noncontrast CT of the abdomen and pelvis with coronal and sagittal reformatted images. CLINICAL INFORMATION: GROSS HEMATURIA COMPARISON: None. DLP: 1084.[address] scans at [facility] use at least one of these dose optimization techniques: automat ed exposure control; mA and/or kV adjustment per patient size (includes targeted exams where dose is matched to clinical indication); or iterative reconstruction. FINDINGS: Mild hepatomegaly. Enlargement of the right hepatic lobe. Prior cholecystectomy. Normal GE junction. Lung bases are well aerated. Noncontrast spleen is normal. Normal noncontrast pancreas. Adrenal gland s are normal. Bilateral renal cortical atrophy. No obstructing ureteral calculi. Tiny nonobstructing calyceal tip calculi. Right renal cyst measuring 2.8 cm. Normal caliber abdominal aorta. Aortic calcification. Dense calcification celiac artery origin. No ab dominal or pelvic lymphadenopathy. No inguinal lymphadenopathy. Prior postoperative changes ventral a bdominal wall mesh hernia repair. Fat-containing umbilical hernia with a tiny herniated diverticulum of transverse colon. Fat-containing umbilical hernia is wide mouth with hernia mesh measuring 5.1 CM. No evidence of obstruction or fluid. Markedly enlarged prostate measuring 6.3 x 6.6 cm. Diffuse bladder wall thickening consistent with bl adder outlet obstruction. Sigmoid diverticulosis. No evidence of acute diverticulitis. No evidence of high-grade small or large bowel obstruction. No free fluid in the abdomen or pelvis. Disc space narrowing L4-5. CT/CT kidney stone [id number] IMPRESSION: 1. No hydronephrosis in either kidney. No obstructing renal or ureteral calcul i. 2. Right renal cyst measuring 2.8 cm. 3. Markedly enlarged prostate measuring 6.6 x 6.3 cm with diffuse bladder wall thickening consistent with bladder outlet obstruction. Recommend correlation P SA. 4. Sigmoid diverticulosis. No evidence of acute diverticulitis. 5. Prior ventral abdominal wall mesh hernia repair. Wide mouth fat-containing umbilical hernia with a tiny herniated transverse colon diverticulum. No eviden ce of obstruction or inflammation. 6. Mild hepatomegaly. 7. Prior cholecystectomy.
== END 2021-02-03 14:11 | disposition home or self-care (01) ==
PROVIDERS: PCP Nurse Practitioner; Visit Provider Nurse Practitioner
DX: N20.0 Calculus of kidney (principal); R31.0 Gross hematuria; Z90.49 Acquired absence of other specified parts of digestive tract; R16.0 Hepatomegaly, not elsewhere classified; K57.30 Diverticulosis of large intestine without perforation or abscess without bleeding; N40.0 Benign prostatic hyperplasia without lower urinary tract symptoms; Q61.01 Congenital single renal cyst
CPT/HCPCS: 74176

== ENCOUNTER → 2022-01-11 13:51 | Outpatient (BNVA) | payer MEDICARE, SELFPAY | PROVIDERS: PCP Nurse Practitioner; Visit Provider Internal Medicine Cardiovascular Disease | DX: I10 Essential (primary) hypertension (principal); I49.3 Ventricular premature depolarization; E78.5 Hyperlipidemia, unspecified; K21.9 Gastro-esophageal reflux disease without esophagitis; N40.0 Benign prostatic hyperplasia without lower urinary tract symptoms; R56.9 Unspecified convulsions | CPT/HCPCS: 99214 ==

== ENCOUNTER → 2022-03-21 11:30 | Outpatient (BNVA) | payer MEDICARE, SELFPAY | PROVIDERS: PCP Nurse Practitioner; Visit Provider Nurse Practitioner Family | DX: M25.562 Pain in left knee (principal); M25.561 Pain in right knee; L98.9 Disorder of the skin and subcutaneous tissue, unspecified; I10 Essential (primary) hypertension; R56.9 Unspecified convulsions; E78.5 Hyperlipidemia, unspecified | CPT/HCPCS: 80053; 80061; 80177 ==

== ENCOUNTER 2022-03-23 06:21 | Outpatient (CLI) | payer MEDICARE, SELFPAY ==
--- NOTE | 2022-03-23 06:32 | XR_ITS ---
WS: [email or web address] Right knee, 3 views, Clinical Data: M25.561 - Pain in right knee Comparison: None. Findings: No fractures or dislocations are seen. There is minimal medial joint compartment narrowing. The mendoza la is intact with a small posterior superior spur.. The soft tissues are unremarkable. There are minimal intramedullary calcifications of the distal right femur. Vascular calcifications ar e seen. XR/XR knee RT 3V* [id number] Impression: Mild osteoarthritis of right knee. Kellgren-Riaz Classification: grade 1 (doubtful): doubtful joint space narr owing and possible osteophytic lipping
--- NOTE | 2022-03-23 06:32 | XR_ITS ---
WS: [email or web address] Left knee, 3 views, 03/22/2022 Clinical Data: M25.562 - Pain in left knee Comparison: None. Findings: No fractures or dislocations are seen. There is medial joint compartment narrowing with a small spur of the medial femoral condyle. There is minimal spurring of the posterior left patella.. The patella is intact. The soft tissues are unremarkable. There is vascular calcification. XR/XR knee LT 3V* [id number] Impression: Mild osteoarthritis of the left knee. Kellgren-Riaz Classification: grade 1 (doubtful): doubtful joint space narr owing and possible osteophytic lipping
== END 2022-03-23 06:22 | disposition home or self-care (01) ==
LOC: RAD 06:24
PROVIDERS: PCP Nurse Practitioner; Visit Provider Nurse Practitioner Family
DX: M17.0 Bilateral primary osteoarthritis of knee (principal)
CPT/HCPCS: 73562

== ENCOUNTER 2022-04-26 11:35 | Outpatient (CLI) | payer MEDICARE, SELFPAY ==
--- NOTE | 2022-04-26 12:30 | MR_ITS ---
WS: [email or web address] MRI LEFT KNEE HISTORY: Bilateral knee pain. COMPARISON: Radiographs 03/23/2022. Anterior cruciate ligament: Intact. Posterior cruciate ligament: Intact. Medial collateral ligament: No tear. The medial collateral ligament is thin and displaced from the ai int line by an extruded meniscus and osteophytes. Posterior lateral corner structures: Intact. Medial menisci: Menisci are small caliber extruded from the joint line. The anterior meniscus is extr uded from the joint line and extends cephalad from the joint line. Both menisci are torn. Lateral meniscus: Fraying along the posterior articular surfaces. No tear identified. Extensor mechanism: Distal quadriceps tendon and patellar tendons are intact. Fluid and soft tissue: No significant joint effusion. There is only a very small suprapatellar effusi on. Small amount of edema surrounding the knee. Moderate-sized Osei's cyst extends over a length of 4 cm. Osseous and articular structures: Patellofemoral compartment: Moderate narrowing of patellofemoral compartment with mild chondromalacia . No marrow edema. Medial compartment: Severe narrowing of the medial compartment with complete loss of cartilage and ed miko in both the femoral condyle and tibial plateau. Marginal osteophytes and extruded meniscus. Subch ondral cyst involving the anterior medial tibial plateau. Lateral compartment: Moderate narrowing of the lateral compartment. Mild chondromalacia. No underlyin g marrow edema. MR/MR knee LT wo con* [id number] IMPRESSION: 1. Severe medial compartment osteoarthritis. Loss of joint space with loss of cartilage and marrow edema and extruded menisci. 2. Anterior and posterior horns of the medial compartment are abnormal and sma ll caliber and extruded from the joint line consistent with meniscal tears. 3. Moderate patellofemoral compartment and lateral compartment internal derang ement with joint space narrowing and partial loss of cartilage. 4. Moderate Osei's cyst.
--- NOTE | 2022-04-26 13:15 | MR_ITS ---
WS: [email or web address] MRI RIGHT KNEE HISTORY: Bilateral knee pain. COMPARISON: Radiographs 03/23/2022 Anterior cruciate ligament: Intact. Posterior cruciate ligament: Intact. Medial collateral ligament: Increased T2 signal and edema surrounding the MCL. There is mild displace ment from the joint line. No tear identified within the MCL. Posterior lateral corner structures: Intact. Medial menisci: Intrasubstance degeneration in the posterior horn. Fraying along the articular surfac es. Seen best on the coronal sequence is increased signal in the posterior meniscus consistent with a radial tear. Lateral meniscus: Complex tear towards the mid posterior meniscal body extending to the meniscal root . Tear extends to the superior articular surface. Extensor mechanism: Normal. Fluid and soft tissue: No significant joint effusion. Small amount of subcutaneous edema. Moderate-si zed Osei's cyst extends over length of 5.1 cm. Osseous and articular structures: Patellofemoral compartment: Near complete loss of cartilage with narrowing of the joint space. Greate r loss of cartilage along the medial patellar facet. Medial compartment: Mild narrowing of the medial compartment. Moderate loss of cartilage in the media l compartment with a small amount of marrow edema involving the femoral condyle and lateral tibial pl ateau. Lateral compartment: Mild narrowing of the lateral compartment with mild loss of cartilage. More foca l loss of cartilage involving the mid joint space. No marrow edema. No fracture. MR/MR knee RT wo con* [id number] IMPRESSION: 1. Mild to moderate tricompartment osteoarthritis. 2. Mild MCL sprain. 3. Radial tear posterior horn medial meniscus. 4. Complex tear in the posterior horn of the lateral meniscus involving the mi d body and meniscal root. 5. Moderate Osei's cyst. 6. Moderate chondromalacia involving the patella. 7. Moderate chondromalacia in the medial compartment and mild in the lateral c ompartment.
== END 2022-04-26 11:36 | disposition home or self-care (01) ==
LOC: RAD 11:35
PROVIDERS: PCP Nurse Practitioner; Visit Provider Nurse Practitioner Family
DX: M17.0 Bilateral primary osteoarthritis of knee (principal); S83.411A Sprain of medial collateral ligament of right knee, initial encounter; S83.271A Complex tear of lateral meniscus, current injury, right knee, initial encounter; S83.241A Other tear of medial meniscus, current injury, right knee, initial encounter; M71.21 Synovial cyst of popliteal space [Baker], right knee; M22.41 Chondromalacia patellae, right knee; M71.22 Synovial cyst of popliteal space [Baker], left knee; X58.XXXA Exposure to other specified factors, initial encounter
CPT/HCPCS: 73721

== ENCOUNTER → 2022-05-03 14:05 | Outpatient (BNVA) | payer MEDICARE, SELFPAY | PROVIDERS: PCP Nurse Practitioner; Referring Provider Nurse Practitioner Family; Visit Provider Specialist | DX: M17.0 Bilateral primary osteoarthritis of knee (principal) | CPT/HCPCS: 20610; 73560; 73565; 99204; J1100; J2795; J3301 ==

== ENCOUNTER → 2022-07-17 14:07 | Outpatient (BNVA) | payer MEDICARE, SELFPAY | PROVIDERS: PCP Nurse Practitioner Family; Visit Provider Internal Medicine Cardiovascular Disease | DX: I10 Essential (primary) hypertension (principal); I49.3 Ventricular premature depolarization; R56.9 Unspecified convulsions; Z87.891 Personal history of nicotine dependence | CPT/HCPCS: 99214 ==

== ENCOUNTER → 2022-08-17 10:45 | Outpatient (BNVA) | payer MEDICARE, SELFPAY | PROVIDERS: PCP Nurse Practitioner Family; Visit Provider Specialist | DX: M17.0 Bilateral primary osteoarthritis of knee (principal); Z71.89 Other specified counseling | CPT/HCPCS: 20610; 99212; J7318 ==

== ENCOUNTER → 2022-08-21 15:49 | Outpatient (BNVA) | payer MEDICARE, SELFPAY | PROVIDERS: PCP Nurse Practitioner Family; Visit Provider Nurse Practitioner Family | DX: I10 Essential (primary) hypertension (principal); R22.1 Localized swelling, mass and lump, neck | CPT/HCPCS: 84439; 84443; 84481 ==

== ENCOUNTER 2022-09-01 15:47 | Outpatient (CLI) | payer MEDICARE, SELFPAY ==
--- NOTE | 2022-09-01 16:00 | US_ITS ---
WS: [email or web address] ULTRASOUND THYROID TECHNIQUE: Ultrasound of the thyroid. CLINICAL INFORMATION: R22.1 - Localized swelling, mass and lump, neck COMPARISON: FINDINGS: Thyroid: Cystic and solid RIGHT thyroid mass with mixed echogenicity similar in appearance to the danish or examination. This involves the entirety of the RIGHT thyroid lobe. Today this measures approximate ly 5.8 x 4.7 x 3.5 cm measuring slightly larger today. Previously this measured 5.0 x 4.4 x 2.8 cm As sociated mild peripheral vascularity. LEFT thyroid gland is normal in appearance. Left thyroid lobe: 2.0 cm x 1.6 cm x 4.1 cm. Isthmus: 6.1 mm. Cervical lymphadenopathy: None. US/US thyroid [id number] IMPRESSION: 3:00 PM. Impression 1. Large RIGHT cystic and solid RIGHT thyroid mass today measuring 5.8 x 4.7 x 3.5 cm measures slightly larger today. Recommend further evaluation with FNA 2. Normal LEFT thyroid.
== END 2022-09-01 15:48 | disposition home or self-care (01) ==
LOC: RAD 15:51
PROVIDERS: PCP Nurse Practitioner Family; Visit Provider Nurse Practitioner Family
DX: E04.1 Nontoxic single thyroid nodule
CPT/HCPCS: 76536

== ENCOUNTER → 2022-10-11 14:02 | Outpatient (BNVA) | payer MEDICARE, SELFPAY | PROVIDERS: PCP Nurse Practitioner Family; Visit Provider Nurse Practitioner Family | DX: I10 Essential (primary) hypertension (principal) | CPT/HCPCS: 80053; 80061 ==

== ENCOUNTER → 2022-11-23 08:45 | Outpatient (BNVA) | payer MEDICARE, SELFPAY | PROVIDERS: PCP Nurse Practitioner Family; Visit Provider Specialist | DX: M17.0 Bilateral primary osteoarthritis of knee (principal) | CPT/HCPCS: 20610; J1100; J2795; J3301 ==

== ENCOUNTER → 2023-01-09 09:05 | Outpatient (BNVA) | payer MEDICARE, SELFPAY | PROVIDERS: PCP Nurse Practitioner Family; Visit Provider Nurse Practitioner Family | DX: I10 Essential (primary) hypertension (principal); R56.9 Unspecified convulsions; E78.5 Hyperlipidemia, unspecified; R73.09 Other abnormal glucose; E03.9 Hypothyroidism, unspecified | CPT/HCPCS: 80053; 80061; 83036; 84443; 85025 ==

== ENCOUNTER → 2023-02-21 15:05 | Outpatient (BNVA) | payer MEDICARE, SELFPAY | PROVIDERS: PCP Nurse Practitioner Family; Visit Provider Internal Medicine Cardiovascular Disease | DX: I10 Essential (primary) hypertension (principal); I49.3 Ventricular premature depolarization; E78.5 Hyperlipidemia, unspecified; K21.9 Gastro-esophageal reflux disease without esophagitis; N40.0 Benign prostatic hyperplasia without lower urinary tract symptoms; R56.9 Unspecified convulsions; Z87.891 Personal history of nicotine dependence | CPT/HCPCS: 93005; 99214 ==

== ENCOUNTER → 2023-02-22 09:15 | Outpatient (BNVA) | payer MEDICARE, SELFPAY | PROVIDERS: PCP Nurse Practitioner Family; Visit Provider Specialist | DX: M17.0 Bilateral primary osteoarthritis of knee (principal); Z71.89 Other specified counseling | CPT/HCPCS: 20610; J1100; J2795; J3301 ==

== ENCOUNTER → 2023-05-31 09:59 | Outpatient (BNVA) | payer MEDICARE, SELFPAY | PROVIDERS: PCP Nurse Practitioner Family; Visit Provider Specialist | DX: M17.0 Bilateral primary osteoarthritis of knee | CPT/HCPCS: 20610; J1100; J2795; J3301 ==

== ENCOUNTER 2023-07-04 15:33 | Outpatient (CLI) | payer MEDICARE, SELFPAY ==
--- NOTE | 2023-07-04 15:43 | XR_ITS ---
WS: [email or web address] KUB, AP view, 07/04/2023 Clinical Data: K59.00 - Constipation, unspecified Comparison: KUB, 01/30/2011 Findings: No abnormal intraabdominal masses or calcifications are seen. There is no dilatated small bowel or ev idence of obstruction. There is a moderate amount of fecal material in the colon. There is mesh material overlying the right abdomen. There are clips in the right upper quadrant from a cholecystectomy. There are phleboliths i n the true pelvis. Impression: Moderate amount of fecal material in the colon.
== END 2023-07-04 15:34 | disposition home or self-care (01) ==
LOC: RAD 15:37
PROVIDERS: PCP Nurse Practitioner Family; Visit Provider Nurse Practitioner Family
DX: K59.00 Constipation, unspecified (principal)
CPT/HCPCS: 74018

== ENCOUNTER → 2023-08-07 11:16 | Outpatient (BNVA) | payer MEDICARE, SELFPAY | PROVIDERS: PCP Nurse Practitioner Family; Visit Provider Nurse Practitioner Family | DX: I10 Essential (primary) hypertension (principal); R73.09 Other abnormal glucose; R56.9 Unspecified convulsions | CPT/HCPCS: 80053; 80061; 80177; 83036 ==

== ENCOUNTER → 2023-09-21 10:12 | Outpatient (BNVA) | payer MEDICARE, SELFPAY | PROVIDERS: PCP Nurse Practitioner Family; Visit Provider Nurse Practitioner | DX: Z71.89 Other specified counseling (principal); M17.0 Bilateral primary osteoarthritis of knee | CPT/HCPCS: 20610; J1100; J2795; J3301 ==

== ENCOUNTER → 2023-12-24 12:37 | Outpatient (BNVA) | payer MEDICARE, SELFPAY | PROVIDERS: PCP Nurse Practitioner Family; Visit Provider Nurse Practitioner | DX: M17.0 Bilateral primary osteoarthritis of knee; Z71.89 Other specified counseling | CPT/HCPCS: 20610; J1100; J2795; J3301 ==

== ENCOUNTER → 2024-03-31 13:04 | Outpatient (BNVA) | payer MEDICARE, SELFPAY | PROVIDERS: PCP Nurse Practitioner Family; Visit Provider Specialist | DX: M17.0 Bilateral primary osteoarthritis of knee (principal) | CPT/HCPCS: 20610; J1100; J2795; J3301 ==

== ENCOUNTER → 2024-05-09 09:58 | Outpatient (BNVA) | payer MEDICARE, SELFPAY | PROVIDERS: PCP Nurse Practitioner Family; Visit Provider Nurse Practitioner Family | DX: I10 Essential (primary) hypertension (principal); R56.9 Unspecified convulsions; E55.9 Vitamin D deficiency, unspecified | CPT/HCPCS: 80053; 80061; 80177; 82652 ==

== ENCOUNTER → 2024-06-04 14:46 | Outpatient (BNVA) | payer MEDICARE, SELFPAY | PROVIDERS: PCP Nurse Practitioner Family; Visit Provider Internal Medicine Cardiovascular Disease | DX: I10 Essential (primary) hypertension (principal); E78.5 Hyperlipidemia, unspecified; I49.3 Ventricular premature depolarization; I65.23 Occlusion and stenosis of bilateral carotid arteries; G47.33 Obstructive sleep apnea (adult) (pediatric); Z87.891 Personal history of nicotine dependence | CPT/HCPCS: 99214 ==

== ENCOUNTER → 2024-07-04 10:55 | Outpatient (BNVA) | payer MEDICARE, SELFPAY | PROVIDERS: PCP Nurse Practitioner Family; Visit Provider Specialist | DX: M17.0 Bilateral primary osteoarthritis of knee (principal); Z71.89 Other specified counseling | CPT/HCPCS: 20610; J1100; J2795; J3301 ==

== ENCOUNTER → 2024-10-10 09:54 | Outpatient (BNVA) | payer MEDICARE, SELFPAY | PROVIDERS: PCP Nurse Practitioner Family; Visit Provider Specialist | DX: M17.0 Bilateral primary osteoarthritis of knee (principal); Z71.89 Other specified counseling | CPT/HCPCS: 20610; 73560; 73565; 99213; J1100; J2795; J3301 ==

== ENCOUNTER → 2025-01-12 10:20 | Outpatient (BNVA) | payer MEDICARE, SELFPAY | PROVIDERS: PCP Nurse Practitioner Family; Visit Provider Nurse Practitioner Family | DX: I10 Essential (primary) hypertension (principal); E11.9 Type 2 diabetes mellitus without complications | CPT/HCPCS: 80053; 80061; 83036 ==

== ENCOUNTER → 2025-01-16 09:39 | Outpatient (BNVA) | payer MEDICARE, SELFPAY | PROVIDERS: PCP Nurse Practitioner Family; Visit Provider Specialist | DX: M17.0 Bilateral primary osteoarthritis of knee (principal) | CPT/HCPCS: 20610; J1100; J2795; J3301; J9999 ==

== ENCOUNTER → 2025-01-28 14:03 | Outpatient (BNVA) | payer MEDICARE, SELFPAY | PROVIDERS: PCP Nurse Practitioner Family; Visit Provider Internal Medicine Cardiovascular Disease | DX: I10 Essential (primary) hypertension (principal); I49.3 Ventricular premature depolarization; E78.5 Hyperlipidemia, unspecified; G47.33 Obstructive sleep apnea (adult) (pediatric); Z99.89 Dependence on other enabling machines and devices | CPT/HCPCS: 99214 ==

== ENCOUNTER → 2025-03-18 15:13 | Outpatient (BNVA) | payer MEDICARE, SELFPAY | PROVIDERS: PCP Nurse Practitioner Family; Visit Provider Specialist | DX: M25.551 Pain in right hip (principal); M54.31 Sciatica, right side | CPT/HCPCS: 73502; 99214 ==

== ENCOUNTER → 2025-04-24 10:11 | Outpatient (BNVA) | payer MEDICARE, SELFPAY | PROVIDERS: PCP Nurse Practitioner Family; Visit Provider Specialist | DX: M17.0 Bilateral primary osteoarthritis of knee (principal) | CPT/HCPCS: 20610; J1100; J2795; J3301; J9999 ==

== ENCOUNTER 2025-06-25 09:45 | Outpatient (CLI) | payer MEDICARE, SELFPAY ==
--- NOTE | 2025-06-25 10:15 | US_ITS ---
WS: [email or web address] THYROID ULTRASOUND HISTORY: E04.1 - Nontoxic single thyroid nodule COMPARISON: 09/01/2022 Right lobe: 4.5 cm x 4.1 cm x 6.9 cm (w x ap x l). Volume: 60.5 cm3. Markedly enlarged RIGHT thyroid. The entire lobe is replaced by large heterogeneous mass with both cystic and solid components. Very similar in appearance to the prior study. Mild increased vascularity within the mass. Left lobe: 1.6 cm x 2.3 cm x 4.2 cm (w x ap x l). Volume: 7.4 cm3. Normal size and echotexture. No significant or dominant nodules are present. Isthmus: 0.8 cm. US/US thyroid [id number] IMPRESSION: 1. Large heterogeneous RIGHT thyroid lobe. The RIGHT thyroid lobe is replaced by large mass with both cystic and solid components. Very similar measurements compared to 09/01/2022. As per history this nodule has undergone a prior biopsy . This may be an goiter. 2. Normal size LEFT thyroid lobe.
== END 2025-06-25 09:46 | disposition home or self-care (01) ==
LOC: RAD 09:47
PROVIDERS: PCP Nurse Practitioner Family; Visit Provider Nurse Practitioner Family
DX: E04.1 Nontoxic single thyroid nodule (principal)
CPT/HCPCS: 76536

== ENCOUNTER → 2025-07-08 11:14 | Outpatient (BNVA) | payer MEDICARE, SELFPAY | PROVIDERS: PCP Nurse Practitioner Family; Visit Provider Nurse Practitioner Family | DX: I10 Essential (primary) hypertension (principal) | CPT/HCPCS: 80053; 80061; 83880; 84443 ==

== ENCOUNTER → 2025-07-13 09:36 | Outpatient (BNVA) | payer MEDICARE, SELFPAY | PROVIDERS: PCP Nurse Practitioner Family; Referring Provider Nurse Practitioner Family; Visit Provider Internal Medicine | DX: E07.89 Other specified disorders of thyroid (principal); R42 Dizziness and giddiness | CPT/HCPCS: 99204 ==

== ENCOUNTER → 2025-07-31 07:54 | Outpatient (BNVA) | payer MEDICARE, SELFPAY | PROVIDERS: PCP Nurse Practitioner Family; Visit Provider Specialist | DX: M17.0 Bilateral primary osteoarthritis of knee (principal) | CPT/HCPCS: 20610; J1100; J2795; J3301; J9999 ==

== ENCOUNTER → 2025-08-05 09:47 | Outpatient (BNVA) | payer MEDICARE, SELFPAY | PROVIDERS: PCP Nurse Practitioner Family; Visit Provider Student in an Organized Health Care Education/Training Program | DX: L05.91 Pilonidal cyst without abscess (principal) | CPT/HCPCS: 99204 ==

== ENCOUNTER → 2025-08-10 14:28 | Outpatient (BNVA) | payer MEDICARE, SELFPAY | PROVIDERS: PCP Nurse Practitioner Family; Visit Provider Internal Medicine Cardiovascular Disease | DX: I49.3 Ventricular premature depolarization (principal); I10 Essential (primary) hypertension; E78.5 Hyperlipidemia, unspecified; G47.33 Obstructive sleep apnea (adult) (pediatric); Z99.89 Dependence on other enabling machines and devices; Z87.891 Personal history of nicotine dependence; R07.9 Chest pain, unspecified; R06.09 Other forms of dyspnea; Z98.61 Coronary angioplasty status | CPT/HCPCS: 93005; 99214 ==

== ENCOUNTER 2025-08-12 09:30 | Day surgery (SDC) | payer MEDICARE, SELFPAY ==
[2025-08-12] VITALS (8 sets, daily range): BP systolic 142–172; BP diastolic 71–99; PULSE 80–86; RESP 16–17; TEMP 36.7–37.3; O2SAT 92–96; BMI 32.4
[2025-08-12 10:56] LABS: Hematocrit 44.3 % (37-53); Hemoglobin 15.10 g/dL (11.27-16.99); Mean Corpuscular HGB Conc 34.1 g/dL (30-55); Mean Corpuscular Hemoglobin 29.8 pg (27-33); Mean Corpuscular Volume 87.4 fl (82-101); Nucleated Red Blood Cells % 0 %; Platelet Count 193 10^3/cmm (157-399); Red Blood Count 5.07 10^6/uL (3.85-5.65); White Blood Count 11.99 10^3/uL (3.29-11.43)
--- NOTE | 2025-08-12 11:11 | ANES.PREANE2 ---
Pre-Anesthetic Assessment Height/Weight: Height 5 ft 7 in Weight 207 lb Temp Pulse Resp BP Pulse Ox O2 Del Method 98.1 F 83 17 172/99 94 Room Air 08/12/25 10:05 08/12/25 10:05 08/12/25 10:05 08/12/25 10:05 08/12/25 10:05 08/12/25 10:05 Operation Date: 08/12/25 11:35 Proposed Procedures p Incision And Drainage Perianal Abscess ; I&D Pilondal Cyst 30743 83629 L05.91(Not Applicable) - Juan Antonio Morataya MD Last intake: Intake Last Liquid Date 08/11/25 Last Liquid Time 20:00 Last Solid Date 08/11/25 Last Solid Time 20:00 Anesthetic Plan Other: No prior issues with anesthesia NPO since yesterday evening Patient has had episodes of dizziness and shortness of breath and significant dyspnea on exertion. Follows with cardiology. Known ventricular arrhythmia with PVCs Medications/Allergies Home Medications ?Medication ?Instructions ?Recorded ?Confirmed ?Last Taken ?Type loratadine 10 mg capsule 10 mg PO QAM 11/25/19 08/11/25 08/11/25 History acetaminophen 500 mg tablet 1,000 mg PO PRN PRN Pain, Mild 01/13/21 08/11/25 Unknown History (Tylenol Extra Strength) hinged brace #1 ea 09/21/23 07/31/25 Unknown Rx levetiracetam 500 mg tablet 500 mg PO BID #180 tabs 02/23/25 08/12/25 08/12/25 Rx Cpap #1 ea 06/12/25 07/31/25 Unknown Rx cephalexin 500 mg capsule 500 mg PO BID 08/11/25 08/11/25 08/11/25 History diltiazem HCl 180 mg 180 mg PO DAILY 08/11/25 08/11/25 08/11/25 History capsule,extended release 24 hr fluticasone propionate 50 2 spray intranasal DAILY PRN 08/11/25 08/11/25 Unknown History mcg/actuation nasal allergies spray,suspension hydrochlorothiazide 12.5 mg tablet 12.5 mg PO DAILY 08/11/25 08/11/25 08/11/25 History lovastatin 20 mg tablet 20 mg PO DAILY 08/11/25 08/11/25 08/11/25 History tamsulosin 0.4 mg capsule 0.4 mg PO DAILY 08/11/25 08/11/25 08/11/25 History telmisartan 80 mg tablet 80 mg PO BID 08/11/25 08/11/25 08/11/25 History Allergies Allergy/AdvReac Type Severity Reaction Status Date / Time erythromycin base Allergy Unknown Verified 08/10/25 13:39 Beta-Adrenergic Agents AdvReac ADR-Depress Verified 08/10/25 13:39 ion Sulfa (Sulfonamide AdvReac ADR-Itching Verified 08/10/25 13:39 Antibiotics) Current Medications Generic Name Dose Route Start Last Admin Trade Name Freq PRN Reason Stop Dose Admin Sodium Chloride 1,000 mls @ 30 mls/hr 08/12/25 10:00 08/12/25 10:32 Sodium Chloride 0.9% IV 08/13/25 09:59 30 mls/hr .Q24H YVETTE Administration PFSH Anesthesia Medical History (Updated 08/10/25 @ 14:53 by Makenzie Rhodes MD) Urinary calculi Gross hematuria Abnormal colonoscopy Polyps, diverticulosis Type 2 diabetes mellitus Seizures Atrial fibrillation Not a kind of chronic anticoagulation PVC (premature ventricular contraction) GERD (gastroesophageal reflux disease) BPH (benign prostatic hyperplasia) Hyperlipidemia HTN (hypertension) Surgical History History of thyroglossal duct cyst removal History of repair of hiatal hernia S/P cholecystectomy History of appendectomy H/O wrist surgery History of esophagogastroduodenoscopy Gastritis, gastric polyp 2016 Family History Father Heart disease Hypertension Mother Breast cancer Heart disease Sister Breast cancer Liver cancer Other Diabetes Social History Smoking and tobacco/nicotine status: former use of tobacco/nicotine Alcohol intake: never Substance/Drug Use: never Household members: spouse Housing: House Data Anesthesia 08/12/25 10:30 08/12/25 10:30 Short CBC 08/12/25 Range/Units 10:30 WBC 11.99 H (3.29-11.43) 10^3/uL Hgb 15.10 (11.27-16.99) g/dL Hct 44.3 (37-53) % MCV 87.4 (82-101) fl Plt Count 193 (157-399) 10^3/cmm Neut % (Auto) 76.4 % Neut # (Auto) 9.17 H (1.8-7.7) 10^3/uL
[2025-08-12 11:13] LABS: Blood Urea Nitrogen 22 mg/dL (8-23); Calcium 10.0 mg/dL (8.5-10.5); Carbon Dioxide 21 mmol/L (22-29); Chloride 103 mmol/L (98-107); Creatinine Clr Calc Pharmacy 71.0509; Glucose 122 mg/dL (65-115); Osmolality Calculated 287 mOsm/kg (285-295); Sodium 136 mmol/L (136-145)
--- NOTE | 2025-08-12 11:13 | W.PM.OPSUD ---
Surgery/Procedure H&P Update DATE OF PROCEDURE: August 12, 2025 DATE H&P PERFORMED: 08/05/25 H&P UPDATE INFORMATION: I have reviewed H&P completed within last 30 days, I have examined patient prior to procedure, No changes to prior documentation and Risks and benefits of the procedure reviewed PLANNED PROCEDURE: Operation Date: 08/12/25 11:35 Proposed Procedures p Incision And Drainage Perianal Abscess ; I&D Pilondal Cyst 13376 [id number] L05.91(Not Applicable) - Juan Antonio Morataya MD
[2025-08-12 11:15] LABS: Anion Gap 16.0 (5-19); Potassium 4.0 mmol/L (3.5-5.1)
[2025-08-12] MEDS: piperacillin-tazobactam 3.375 GM in sodium chloride 0.9% (plus) 50 ML IV (12:15)
--- NOTE | 2025-08-12 12:44 | P.OP_ITS ---
Operative Report Date of procedure: August 12, 2025 Pre-op diagnosis: Infected pilonidal cyst Post-op diagnosis: same Post-op findings: Infected pilonidal cyst. Evacuated 10 cc of fluid. Send cultures. Packed with quarter inch iodoform Procedure done: Incision and drainage of infected pilonidal cyst Implants: N/A Specimens removed/disposition: Cultures sent Pathology: none sent Surgeon: Juan Antonio Morataya MD Hoop Punch Operator Helper: N/A Anesthesia: Local Estimated blood loss (mL): 2 Complications: N/A Findings: Infected pilonidal cyst. Evacuated 10 cc of fluid. Send cultures. Packed with quarter inch iodoform Condition: stable Disposition: same day Brief History: 89-year-old male who presented with an infected pilonidal cyst. Discussed risk and benefits and patient agreed to proceed with incision and drainage of pilonidal cyst. Procedure: Consent obtained in the preop area. Preoperative antibiotics administered. SCDs on and working. Patient placed on left lateral decubitus and operating room table. Pilonidal cyst area prepped and draped with usual sterile fashion. Local infiltration performed using 1% lidocaine and 0.5% bupivacaine with epinephrine. 2 cm incision carried out using an 11 blade. Loculations broken up with a hemostat. 10 cc of purulent fluid evacuated. Culture sent. Wound packed and adequate hemostasis achieved. Patient transferred to PACU without any complications.
== END 2025-08-12 13:15 | disposition home or self-care (01) ==
PROVIDERS: Student in an Organized Health Care Education/Training Program; PCP Nurse Practitioner Family; Visit Provider Student in an Organized Health Care Education/Training Program
PROC: (CPT 10080; principal; 2025-08-12 11:35)
DX: L05.01 Pilonidal cyst with abscess (principal); E11.9 Type 2 diabetes mellitus without complications; I48.91 Unspecified atrial fibrillation; I49.3 Ventricular premature depolarization; K21.9 Gastro-esophageal reflux disease without esophagitis; E78.5 Hyperlipidemia, unspecified; I10 Essential (primary) hypertension
CPT/HCPCS: 10080; 36415; 80048; 85025; 87070; 87075; 87205; J2543; J7030; J9999

== ENCOUNTER → 2025-08-14 11:28 | Outpatient (BNVA) | payer MEDICARE, SELFPAY | PROVIDERS: PCP Nurse Practitioner Family; Visit Provider Dermatology | DX: D17.1 Benign lipomatous neoplasm of skin and subcutaneous tissue of trunk (principal); L72.8 Other follicular cysts of the skin and subcutaneous tissue; D18.01 Hemangioma of skin and subcutaneous tissue; D48.5 Neoplasm of uncertain behavior of skin; L57.0 Actinic keratosis | CPT/HCPCS: 11102; 17000; 99203 ==

== ENCOUNTER 2025-08-19 09:29 | Outpatient (CLI) | payer MEDICARE, SELFPAY ==
[2025-08-19 09:53] VITALS: BMI 32.4
--- NOTE | 2025-08-19 09:55 | ECG_ITS ---
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 Interpretive Statements Procedure: A total of 0.4 mg of Lexiscan was infused over 20 seconds. The stress phase was continued for a total of 5 minutes. Sestamibi was injected 20 seconds after the Lexiscan infusion. Findings:The patient's resting blood pressure was 146/92 mmHg with a resting heart rate of 80 bpm. After Lexiscan injection the patient's blood pressure did not significantly change. The heart rate increased to a maximum of 94 bpm. The resting/baseline EKG showed normal sinus rhythm with left anterior fascicular block. There were also 2 premature ventricular contractions. During the stress test there were frequent premature ventricular contractions sometimes in couplets there were no new ST or T wave changes. Conclusion: 1. Stress EKG negative for ischemia and symptoms of angina. 2. Frequent premature ventricular contractions sometimes in the form of couplets during stress test and in recovery. 3. Normal blood pressure and heart rate response. 4. Nuclear myocardial perfusion scan pending; see separate report. Electronically Signed On 08-19-2025 19:40:19 RAND BUTTER by Renan Leahy M.D. [email or web address]
--- NOTE | 2025-08-19 09:56 | NMCV_ITS ---
NM taylor perf SPECT r/s* [id number] Evi Banuelos Age: 89 Gender: M : 1935 Exam Date: 08/19/2025 10:31 Ordering Phys: Makenzie Rhodes MD ([email or web address]) Technologist: ELIZABETH Meyer Exam Location: [facility] Indications: cp STRESS TEST [facility] IMAGE PROTOCOL Rest/Stress 1 Lexiscan Day Radiopharmaceutical Dose (mCi) Administration Site Administered by Rest: Tc-99m 10.7 IV Mimi Christian BRIDGE MANAGER Sestamibi Stress:Tc-99m 33 IV Mimi Christian, BRIDGE MANAGER Sestamibi Rest: 19-Aug-2025 60 Discovery 630 Stress: 19-Aug-2025 30 Discovery 630 0.4mg Lexiscan. Images obtained in supine and prone position. SPECT RESULTS Technical Quality: Poor Raw Data Analysis: Normal Image Corrections: No attenuation or motion correction applied Summed Stress Score: 7 Summed Rest Score: 12 Summed Difference Score: 0 PERFUSION FINDINGS There is a large area of severely reduced tracer counts in the inferior wall that appears worse on the resting compared to the stress images. FUNCTIONAL RESULTS (calculated via Gated SPECT) Stress Image LV EF (%): 59 Stress EDV (mL):111 TID: 1.02 Stress ESV (mL):46 FUNCTIONAL FINDINGS: There is normal left ventricular systolic function. IMPRESSIONS Myocardial perfusion imaging is consistent with attenuation artifact in the inferior wall. There is no evidence of infarction or ischemia. There is normal left ventricular systolic function with an ejection fraction of 59%.. Renan Leahy MD, FACC (Electronically Signed) Final Date: 19 August 2025 18:16 S
[2025-08-19 11:17] VITALS: BP 149/91; PULSE 86
== END 2025-08-19 09:30 | disposition home or self-care (01) ==
PROVIDERS: PCP Nurse Practitioner Family; Visit Provider Internal Medicine Cardiovascular Disease
DX: K22.4 Dyskinesia of esophagus (principal); R07.9 Chest pain, unspecified
CPT/HCPCS: 36415; 78452; 93017; 96374; A9500; J2785

== ENCOUNTER 2025-08-26 10:43 | Outpatient (CLI) | payer MEDICARE, SELFPAY ==
--- NOTE | 2025-08-26 11:15 | USCV_ITS ---
Evi Banuelos Age: 89 Gender: M : 1935 Exam Date: 08/26/2025 11:12 Ordering Phys: Makenzie Rhodes MD ([email or web address]) Technologist: Exam Location: [facility] [place] Indication: pre op clearance BP: 130 / 85 HR: 70 Rhythm: Sinus Technical Quality: Adequate MEASUREMENTS (Male / Female) Normal Values 2D ECHO LV Diastolic Diameter PLAX 3.4 cm 4.2 - 5.9 / 3.9 - 5.3 cm IVS Diastolic Thickness 1.7 cm 0.6 - 1.0 / 0.6 - 0.9 cm IVS Systolic Thickness 2.1 cm LVPW Diastolic Thickness 1.4 cm 0.6 - 1.0 / 0.6 - 0.9 cm LVPW Systolic Thickness 1.9 cm LVOT Diameter 2.2 cm LV Ejection Fraction 2D Teich 66.5 % LV Ejection Fraction MOD 4C 69.1 % LV Ejection Fraction MOD 2C 72.1 % LV Ejection Fraction 2C AL 72.6 % LA Diameter 3.0 cm RA Systolic Volume 4C AL 38.3 ml RA Systolic Volume 4C MOD 35.5 ml LA Sys Volume AL 51.6 cm cubed LA Sys Volume Index AL 24.3 cm cubed/m squared Aorta at Sinotubular Diameter 3.6 cm IVC Diameter 1.5 cm M-MODE LA Ao Ratio MM 1.2 AV Cusp Separation MM 2.8 cm DOPPLER AV Peak Velocity 164.0 cm/s LVOT Peak Velocity 88.0 cm/s AV Area Cont Eq vti 2.4 cm squared AV Area Cont Eq pk 2.0 cm squared MV Peak Velocity 131.0 cm/s TV Peak Velocity 219.0 cm/s TR Peak Velocity 265.0 cm/s TR Peak Gradient 28.1 mmHg PV Peak Velocity 124.0 cm/s FINDINGS Left Ventricle Normal left ventricular size and systolic function, EF 72%.. Moderate left ventricular hypertrophy. No regional wall motion abnormalities. Grade I/IV diastolic dysfunction (abnormal relaxation filling pattern), normal to mildly elevated filling pressures. Right Ventricle Normal right ventricular size and systolic function. Right Atrium Normal right atrial size. Left Atrium Normal left atrial size. IA Septum Normal appearance of the interatrial septum. Mitral Valve Mild mitral annular calcification. Trace mitral valve regurgitation. Aortic Valve Thickened aortic valve. Aortic valve sclerosis. Tricuspid Valve Trace tricuspid valve regurgitation. Estimated pulmonary artery peak systolic pressure 31 mmHg Pulmonic Valve Pulmonic valve not well visualized. Pericardium No pericardial effusion. Aorta Normal aortic annulus size. IVC Normal inferior vena cava. CONCLUSIONS Normal left ventricular size and systolic function, EF 72%.. Moderate left ventricular hypertrophy. No regional wall motion abnormalities. Grade I/IV diastolic dysfunction (abnormal relaxation filling pattern), normal to mildly elevated filling pressures. Mild mitral annular calcification. Trace mitral valve regurgitation. Aortic valve sclerosis. Trace tricuspid valve regurgitation. Estimated pulmonary artery peak systolic pressure 31 mmHg. There is no pericardial effusion. There are no intracardiac masses. Comparison with the previous study is difficult because of the difference in the technical quality. Dr Makenzie Rhodes MD FAC (Electronically Signed) Final Date: 28 August 2025 15:44 S
== END 2025-08-26 10:44 | disposition home or self-care (01) ==
LOC: RAD 10:44
PROVIDERS: PCP Nurse Practitioner Family; Visit Provider Internal Medicine Cardiovascular Disease
DX: R06.09 Other forms of dyspnea (principal); I51.89 Other ill-defined heart diseases; I51.7 Cardiomegaly; I35.8 Other nonrheumatic aortic valve disorders; I35.0 Nonrheumatic aortic (valve) stenosis; I34.0 Nonrheumatic mitral (valve) insufficiency
CPT/HCPCS: 93306

== ENCOUNTER → 2025-08-27 10:06 | Outpatient (BNVA) | payer MEDICARE, SELFPAY | PROVIDERS: PCP Nurse Practitioner Family; Visit Provider Nurse Practitioner Family | DX: E04.1 Nontoxic single thyroid nodule (principal) | CPT/HCPCS: 80048; 85007; 85027 ==

== ENCOUNTER → 2025-09-04 09:15 | Outpatient (BNVA) | payer MEDICARE, SELFPAY | PROVIDERS: PCP Nurse Practitioner Family; Visit Provider Student in an Organized Health Care Education/Training Program | DX: L72.0 Epidermal cyst (principal) | CPT/HCPCS: 99024 ==

== ENCOUNTER 2025-10-02 11:12 | Outpatient (CLI) | payer MEDICARE, SELFPAY ==
[2025-10-02 12:22] LABS: Alanine Aminotransferase 30 U/L (0-41); Albumin Level 4.2 g/dL (3.5-5.2); Alkaline Phosphatase 66 U/L (40-130); Anion Gap 12.5 (5-19); Aspartate Amino Transferase 47 U/L (0-40); Blood Urea Nitrogen 11 mg/dL (8-23); Calcium 9.9 mg/dL (8.5-10.5); Carbon Dioxide 26 mmol/L (22-29); Chloride 98 mmol/L (98-107); Globulin 2.2 g/dL (1.3-4.6); Glucose 112 mg/dL (65-115); Osmolality Calculated 276 mOsm/kg (285-295); Potassium 3.5 mmol/L (3.5-5.1); Sodium 133 mmol/L (136-145); Thyroid Stimulating Hormone 2.29 uIU/mL (0.27-4.20); Total Protein 6.4 g/dL (6.6-8.7)
== END 2025-10-02 11:13 | disposition home or self-care (01) ==
LOC: LAB 11:21
PROVIDERS: PCP Nurse Practitioner Family; Visit Provider Otolaryngology
DX: E04.1 Nontoxic single thyroid nodule (principal); E87.1 Hypo-osmolality and hyponatremia
CPT/HCPCS: 80053; 84443